=== PATIENT | female | born 1995 | race Hispanic/Latino ===

== ENCOUNTER 2019-06-24 21:16 | Emergency (ER) | payer MEDICAID, OTHER ==
[2019-06-24] MEDS ORDERED: ACETAMINOPHEN EXTRA STRENGTH 500 MG TABLET ONE (21:45)
== END 2019-06-24 23:20 | disposition home or self-care (01) ==
LOC: EDH 21:16
DX: S43.401A Unspecified sprain of right shoulder joint, initial encounter (principal); S53.401A Unspecified sprain of right elbow, initial encounter; S93.602A Unspecified sprain of left foot, initial encounter; S29.011A Strain of muscle and tendon of front wall of thorax, initial encounter; V49.9XXA Car occupant (driver) (passenger) injured in unspecified traffic accident, initial encounter; Y93.89 Activity, other specified; Y92.89 Other specified places as the place of occurrence of the external cause; Y99.8 Other external cause status
CPT/HCPCS: 71045; 73030; 73080; 73630; 81025; 93005